=== PATIENT | male | born 1955 | race Caucasian/White ===

== ENCOUNTER 2018-10-15 14:36 | Outpatient (CLI) | payer OTHER ==
--- NOTE | 2018-10-15 16:38 | ULT ---
THYROID ULTRASOUND INDICATION: Nontoxic goiter TECHNIQUE: Grayscale and color Doppler images were obtained of the thyroid gland. COMPARISON: Thyroid ultrasound from prior radiology associates dated July 05, 2014 and thyroid ultraso und dated January 26, 2013. FINDINGS: Right thyroid lobe: The right thyroid lobe measures 4.9 x 1.9 x 1.6 cm. There is a stable 6 mm hypoec hoic nodule within the superior pole of the right thyroid lobe. There is a stable 4 mm cystic abnormality seen within the mid right thyroid lobe. There is an enlarging lobulated cystic abnormalit y within the lower pole of the right thyroid lobe measuring 1.0 x 0.6 x 0.8. There is relatively stable 5 mm is mixed cystic and solid lesion within the medial aspect of the right lower lobe. Thyroid isthmus: The thyroid isthmus measures 0.74 cm. Left thyroid lobe: The left thyroid lobe measures 4.8 x 1.8 x 1.6 cm. There is a relatively stable hy poechoic 8 mm and 6 mm nodule within the superior pole left thyroid lobe. There is a mixed hyperechoic and isoechoic nodule seen within the mid left thyroid gland measuring 1.4 x 0.7 x 1.1 cm that has demonstrated some mild interval growth since the comparison exams. A 7 mm mixed cystic and solid lesion within the lower pole of the left thyroid gland is now identified. IMPRESSION: 1. Slight interval growth of a cystic type abnormality involving the inferior pole of the right thyro id lobe. 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 A follow-up examination in one year is recommended to document stability. 2. Slight interval growth of the mixed echogenicity solid nodule involving the mid left thyroid gland . The interval growth has been minimal since the comparison examinations in 2014 and 2012. This is consistent with a TIRADS 3 lesion. 3. New mixed cystic and solid nodule involving the lower pole of the left thyroid gland measuring 7 m m. This is consistent with a TIRADS 3 lesion.
== END 2018-10-15 14:37 | disposition home or self-care (01) ==
LOC: BICULT 14:36
PROVIDERS: ATTEND Otolaryngology Otolaryngic Allergy
DX: E04.2 Nontoxic multinodular goiter (principal)
CPT/HCPCS: 76536

== ENCOUNTER 2022-12-02 16:09 | Outpatient (CLI) | payer MEDICARE, OTHER | END 2022-12-02 16:10 | disposition home or self-care (01) | LOC: SCSRAD 16:09 | PROVIDERS: ATTEND Neurological Surgery | DX: M51.16 Intervertebral disc disorders with radiculopathy, lumbar region (principal); M47.26 Other spondylosis with radiculopathy, lumbar region | CPT/HCPCS: 72110 ==

== ENCOUNTER 2022-12-17 12:29 | Outpatient (CLI) | payer MEDICARE, OTHER | END 2022-12-17 12:30 | disposition home or self-care (01) | LOC: SCSMRI 12:29 | PROVIDERS: ATTEND Neurological Surgery | DX: M47.816 Spondylosis without myelopathy or radiculopathy, lumbar region (principal); M51.36 Other intervertebral disc degeneration, lumbar region; M89.38 Hypertrophy of bone, other site; M48.061 Spinal stenosis, lumbar region without neurogenic claudication; M25.78 Osteophyte, vertebrae; M48.07 Spinal stenosis, lumbosacral region; M40.46 Postural lordosis, lumbar region | CPT/HCPCS: 72148 ==

== ENCOUNTER 2023-01-27 07:33 | Outpatient (CLI) | payer MEDICARE, OTHER ==
[2023-01-27] MEDS ORDERED: Iopamidol-370 76% 500 ML MDV (1 ML CHARGE) ONE (11:11)
== END 2023-01-27 07:34 | disposition home or self-care (01) ==
LOC: BICCT 07:33
PROVIDERS: ATTEND Urology
DX: Z12.5 Encounter for screening for malignant neoplasm of prostate (principal); D35.01 Benign neoplasm of right adrenal gland; N20.2 Calculus of kidney with calculus of ureter; N28.1 Cyst of kidney, acquired; K80.20 Calculus of gallbladder without cholecystitis without obstruction; N28.89 Other specified disorders of kidney and ureter
CPT/HCPCS: 74178; 82565; Q9967

== ENCOUNTER 2023-09-09 08:17 | Outpatient (CLI) | payer MEDICARE, OTHER ==
[2023-09-09 10:30] LABS: Bilirubin Neg (Negative); Blood, Urine Negative (Negative); Clarity Clear (Clear); Glucose, Urine (Dipstick) >=1000 mg/dL (Negative); Ketone, Urine Negative (Negative); Leukocyte Negative (Negative); Nitrite Negative (Negative); Protein, Urine (Dipstick) 100 mg/dl (Neg-Trace); Specific Gravity, Urine 1.015 (1.005-1.030); Urobilinogen Normal mg/dL (Less than 2)
[2023-09-09 10:34] LABS: Hemoglobin 15.3 g/dL (13.5-17.5); Mean Corpuscular HGB CONC 35.6 g/dL (32.0-36.0); Mean Corpuscular Hemoglobin 32.1 pg (27.0-33.0); Mean Corpuscular Volume 90.1 fL (81.2-95.1); Mean Platelet Volume 10.2 fL (7.4-10.4); Platelet Count 217 10x3/uL (150-450); RBC Distribution Width 12.4 % (11.5-14.5); Red Blood Cell (RBC) Count 4.77 10x6/uL (4.32-5.72); White Blood Cell (WBC) Count 7.9 10x3/uL (3.5-10.5)
[2023-09-09 11:09] LABS: PTT 24.9 sec (22.0-33.0); Prothrombin Time 10.4 sec (9.5-12.1)
[2023-09-09 11:15] LABS: Anion Gap 16 mmol/L (10-20); BUN (Urea Nitrogen) 19 mg/dL (8.4-25.7); Calc. Creatinine Clearance 0 mL/min (70-130); Calcium 9.6 mg/dL (7.8-10.44); Carbon Dioxide 29 mmol/L (23-31); Chloride 103 mmol/L (98-107); Estimated GFR 68; Glucose 169 mg/dL (80-115); Potassium 3.9 mmol/L (3.5-5.1); Sodium 144 mmol/L (136-145)
[2023-09-09 11:18] LABS: Bacteria/HPF None Seen HPF (None Seen); RBC/HPF 0-3 HPF (0-3); Squamous Epithelial 0-3 HPF (0-3); WBC/HPF None Seen HPF (0-3)
== END 2023-09-09 08:18 | disposition home or self-care (01) ==
LOC: LABBT 08:17
PROVIDERS: ATTEND Urology
DX: Z01.818 Encounter for other preprocedural examination (principal); N20.0 Calculus of kidney
CPT/HCPCS: 80048; 81001; 85027; 85610; 85730; 87086; 93005; 93010

== ENCOUNTER 2023-11-18 10:32 | Outpatient (CLI) | payer MEDICARE, OTHER | END 2023-11-18 10:33 | disposition home or self-care (01) | LOC: MRI 10:32 | PROVIDERS: ATTEND Specialist | DX: M51.16 Intervertebral disc disorders with radiculopathy, lumbar region (principal); M47.26 Other spondylosis with radiculopathy, lumbar region; M47.27 Other spondylosis with radiculopathy, lumbosacral region; D35.01 Benign neoplasm of right adrenal gland; N28.1 Cyst of kidney, acquired; E27.9 Disorder of adrenal gland, unspecified | CPT/HCPCS: 72148 ==

== ENCOUNTER 2024-01-28 07:24 | Outpatient (CLI) | payer MEDICARE, OTHER ==
[2024-01-28] MEDS ORDERED: Iopamidol 370 76% 100 ML VIAL ONE (09:50)
== END 2024-01-28 07:25 | disposition home or self-care (01) ==
LOC: CT 07:24
PROVIDERS: ATTEND Urology
DX: M47.816 Spondylosis without myelopathy or radiculopathy, lumbar region (principal); N20.0 Calculus of kidney; N28.1 Cyst of kidney, acquired; K80.20 Calculus of gallbladder without cholecystitis without obstruction
CPT/HCPCS: 36415; 74178; 82565